=== PATIENT | female | born 1975 ===

== ENCOUNTER 2020-07-03 19:48 | Emergency (ER) | payer OTHER ==
[~2020-07-03] VITALS: Ht 167.6 cm; Wt 74.8 kg
[2020-07-03] MEDS ORDERED: XANAX2 MG (19:59)
== END 2020-07-03 23:48 | disposition home or self-care (01) ==
LOC: ER 19:48
DX: N92.1 Excessive and frequent menstruation with irregular cycle (principal); D25.9 Leiomyoma of uterus, unspecified

== ENCOUNTER 2020-07-04 10:49 | Emergency (ER) | payer OTHER ==
[~2020-07-04] VITALS: Ht 167.6 cm; Wt 74.8 kg
[~2020-07-04 10:49] MED LIST: XANAX2 MG
== END 2020-07-04 17:26 | disposition home or self-care (01) ==
LOC: ER 10:49
DX: N93.8 Other specified abnormal uterine and vaginal bleeding (principal)

== ENCOUNTER 2021-09-06 20:49 | Emergency (ER) | payer OTHER ==
[~2021-09-06] VITALS: Ht 167.6 cm; Wt 68.0 kg
[2021-09-06] MEDS ORDERED: RESTORIL22.5 MG PO (21:03)
[2021-09-06] MEDS ORDERED: PAXIL30 MG PO (21:04)
[2021-09-06] MEDS ORDERED: XANAX1 MG PO (21:04)
== END 2021-09-06 23:20 | disposition home or self-care (01) ==
LOC: ER 20:49
DX: F41.0 Panic disorder [episodic paroxysmal anxiety] (principal); E86.0 Dehydration; I10 Essential (primary) hypertension